=== PATIENT | male | born 1960 | race Caucasian/White ===

== ENCOUNTER 2016-09-09 14:00 | Observation (INO) | payer BC ==
[2016-09-09] MEDS ORDERED: Aspirin Low Dose CHEW TAB* 81 MG PO ONE (14:19)
[2016-09-09] MEDS ORDERED: Metoclopramide IV* 5 MG/ML 2 ML VIAL IV SLOW PU ONE (14:23)
[2016-09-09] MEDS ORDERED: diPHENhydraMINE IV* 50 MG/ML 1 ml VIAL (BENADRYL) SLOW PUSH ONE (14:23)
[2016-09-09 14:50] LABS: Hematocrit 47 % (42-52); Hemoglobin 15.8 g/dl (14.0-18.0); Mean Corpuscular HGB Conc 34 g/dl (31-36); Mean Corpuscular Hemoglobin 30 pg (27-31); Mean Corpuscular Volume 88 fL (80-94); Mean Platelet Volume 9 um3 (7.4-10.4); Red Blood Count 5.28 10^6/ul (4.0-5.4); Red Cell Distribution Width 13 % (10.5-15); White Blood Count 5.8 10^3/ul (3.5-10.8)
--- NOTE | 2016-09-09 15:02 | RAD ---
indication: Traumatic injury to the back of head while ice skating. Patient reports positive loss of consciousness and amnesia of the event. COMPARISON: None A CT scan of the brain and c-spine was performed without intravenous contrast enhancement. Contiguous axial sections were obtained from the lung apices through the vertex. BRAIN: The ventricles, cisterns and sulci are within normal limits. No significant focal abnormality or mass effect is seen. The glez-white differentiation is adequately maintained. There is no evidence for intracranial hemorrhage. No significant bony abnormality is present. The mastoid air cells are appropriately aerated. The visualized paranasal sinuses are clear. C-SPINE: On the sagittal view images the vertebral bodies and bilateral facet joints are correctly aligned. The dens is intact and the atlantoaxial interval is not widened. There is no visible fracture or traumatic dislocation of the cervical spine. Degenerative changes include loss of intervertebral disc height and marginal osteophyte formation most severely affecting C4-C7. On the coronal plane images the same levels exhibit sclerotic uncovertebral hypertrophy. There is no hyperdense material in the cervical canal to indicate hemorrhage. The visualized musculature and soft tissues are normal. There is no gross lymphadenopathy visualized. The visualized portion of the lung apices are clear. IMPRESSION: 1. No calvarial fracture or acute intracranial hemorrhage. 2. Degenerative changes of the cervical spine as described above without acute fracture or traumatic dislocation.
[2016-09-09] MEDS ORDERED: Aspirin TAB* 325 MG PO ONE (15:04)
[2016-09-09 15:08] LABS: Albumin 4.2 g/dL (3.2-5.2); BUN/Creatinine Ratio 14.3 (8-20); Calcium 9.2 mg/dL (8.6-10.3); Globulin 2.6 g/dL (2-4); Potassium 4.2 mmol/L (3.5-5.0); Total Bilirubin 0.6 mg/dL (0.2-1.0); Total Protein 6.8 g/dL (6.4-8.9)
[2016-09-09 15:10] LABS: Troponin I 0.01 ng/mL (<0.04)
--- NOTE | 2016-09-09 16:45 | RAD ---
INDICATION: Chest pain COMPARISON: None. TECHNIQUE: Single AP portable view of the chest was obtained. FINDINGS: Image quality is compromised due to the relative inferiority of a portable chest x-ray. The heart and mediastinum exhibit normal size and contour. The lungs are grossly clear. There is no evidence of a large pleural effusion. Visualized bones are normal for the patient's age. IMPRESSION: No radiographic evidence for acute cardiopulmonary abnormality on this portable chest x-ray.
[2016-09-09] MEDS ORDERED: Ondansetron INJ* 2 MG/ML VIAL IV PRN (17:16)
[2016-09-09] MEDS ORDERED: Atorvastatin* 40 MG TAB PO SCH (21:00)
[2016-09-09] MEDS: Acetaminophen TAB* 325 MG PO PRN (22:59)
--- NOTE | 2016-09-10 02:29 | HP ---
HISTORY AND PHYSICAL: DATE OF ADMISSION: 09/09/16 PRIMARY CARE PROVIDER: Dr. Gibbs in [place], [place]. Phone number is [phone]. ATTENDING PHYSICIAN WHILE IN THE HOSPITAL: Dr. Francis Rudd *(report dictated by Oleg Penny NP). CHIEF COMPLAINT: 1. Fall. 2. Chest pressure. HISTORY OF PRESENT ILLNESS: Mr. Martinez is a 55-year-old male patient who has a history of coronary artery disease and hyperlipidemia. The patient states that he was ice skating today, which he has done several times and he cannot really recall because last thing he remembers he slipped on the ice and he fell and hit his head. He is having difficulty recalling the event. He says he did not pass out, but he does state that he was having some chest pressure prior to the event and he did say that he had some chest pressure afterwards that has now subsequently receded. He says that he has noticed over the last few weeks when he is exercising, he does get some chest pressure, sometimes mostly in his left arm though. He says he usually works through it and it goes away. He denies any associated shortness of breath or diaphoresis and it does not radiate into the jaw and it does typically go away when he continues the exertion. He denies any recent URI symptoms. He denies having any recent fevers, chills, or cough. He denies having any abdominal pain or any nausea or vomiting. He says that he is not having any chest pressure now, but because of the fact that he did fall today and then afterwards, he felt what he says in his own words dazed. He does remember getting up and skating to the bench and then after that being brought in to the hospital. He recalls the events leading up to the fall. He was evaluated in the ER. There was concern for this chest pressure he has been having and the hospitalist service was asked to evaluate for admission. PAST MEDICAL HISTORY: Significant for: 1. CAD. 2. Hyperlipidemia. PAST SURGICAL HISTORY: 1. He has had a cardiac cath. 2. He has had knee arthroscopy. 3. Appendectomy. 4. Diskectomy. HOME MEDICATIONS: Include: 1. Plavix 75 mg daily. 2. Lipitor 40 mg daily. 3. Aspirin 81 mg daily. ALLERGIES TO MEDICATIONS: Include PENICILLIN. FAMILY HISTORY: His father had coronary artery disease. SOCIAL HISTORY: He does not smoke. He does not drink. Surrogate decision maker is his . REVIEW OF SYSTEMS: There is no documented fever. He denied having any significant weight change. There was no double vision. There is no ear discharge. He denies having any rhinorrhea. There is no sore throat. No thyroid enlargement. There is chest pressure per my HPI. There is no abdominal pain. There is no nausea. No vomiting. There is no dysuria. No frequency. No loss of consciousness that he is aware of. No seizure activity. No pruritus. No skin ulcerations. Review of 14 systems completed, all others negative. PHYSICAL EXAMINATION GENERAL: At this time, Mr. Martinez is a 55-year-old male patient. He does not appear to be in any acute distress. The patient is awake, he is alert. He appears well nourished, well developed. VITAL SIGNS: Blood pressure 148/82 with a pulse of 52, respirations 16, O2 sat 98%, and temperature 97.8. HEENT: Head: Atraumatic and normocephalic. Eyes: EOMs are intact. Sclerae anicteric and not pale. Throat: Oral mucosa appears to be moist. No oropharyngeal erythema. NECK: Supple. LUNGS: Clear to auscultation bilaterally. No wheezes, rales, or rhonchi. HEART: Sounds S1, S2. Regular rate and rhythm. No murmurs, rubs, or gallops. ABDOMEN: Soft, flat, and nontender. Bowel sounds present. EXTREMITIES: Pulses 2+ throughout. Able to move all 4 extremities with 5/5 strength. NEUROLOGIC: The patient is awake, he is alert, he is oriented x3. Tongue midline. Stockroom Worker were equal. No gross focal deficits. SKIN: Grossly intact. LABORATORY DATA AND DIAGNOSTIC STUDIES: Revealed a WBC of 5.8, RBC of 5.28, hemoglobin 15.9, hematocrit of 47, platelet count of 152. Sodium 137, potassium 4.2, chloride 104, bicarb 29, BUN 17, creatinine 1.19, glucose 105, lactic 1.3, calcium 9.2. Total bili 0.6, AST 23, ALT 25, alk phos 47. Troponin 0.01. Albumin 4.2. He had a cervical spine CT obtained today, which reveals no calvarial fracture or acute intracranial hemorrhage. Degenerative changes of the cervical spine as described above without acute fracture or traumatic dislocation. He had a brain CT, which showed no acute fracture or no intracranial hemorrhage. He had a chest x-ray obtained today as well, which revealed no acute disease. EKG today shows a sinus rhythm, rate of 62. He had a PAC, but no ST elevations or T-wave inversions were noted. No previous EKG for comparison. No old medical records were available. Old medical records were attempted to be reviewed. ASSESSMENT AND PLAN: Mr. Martinez is a 55-year-old male patient coming into the ER today with complaints of chest discomfort, in addition to this fall on the ice and he had been complaining of chest pressure with exertion off and on last couple weeks. He will be admitted under observation status for: 1. Chest pain: Again, with his history of coronary artery disease, this is concerning that this could be related to acute coronary syndrome, his pain that he has been having, particularly the fact that he has it with exertion. My plan at this point is to go ahead and get a stress test. We will cycle his troponins, get an EKG, lipid panel, A1c in the morning, and he is already on Plavix, aspirin, and statin. We will continue. I am not going to put him on a beta-farrukh currently. His resting heart rate is right around 60 to 59 and should his troponins go up or EKG change, we will get Cardiology consult and place him on heparin subcu and we will continue to monitor. 2. Coronary artery disease: Again, Plavix, aspirin, and statin at this point. Not on a beta-farrukh because his resting heart rate is again right around 60. 3. Hyperlipidemia: Continue with statin therapy. Check lipid panel in the morning. 4. Concussion: At this point, we will continue with supportive care. CT of the brain was negative. I will continue to follow. I suspect the fall was probably mechanical, slipping on the ice when he was ice skating. He did not appear to syncopize. We will get a stress test. I will place him on telemetry and continue to monitor. 5. DVT prophylaxis: He will be placed on SCDs. 6. Code status: Full code. 7. Fluids, electrolytes, and nutrition: He can have a heart healthy diet and n.p.o. after midnight. TIME SPENT: Time spent on the admission 60 minutes, greater than half the time was spent [id number] with the patient obtaining my history and physical, other half the time spent going over the plan of care with the patient and implementing the plan of care. I did discuss the plan of care with my attending , Dr. Rudd; he is in agreement. OLEG PENNY NP CC: Dr. Gibbs [place], [place]* [id number]/CPS #: [id number] MTDD
[2016-09-10 06:55] LABS: BUN/Creatinine Ratio 12.9 (8-20); Calcium 8.7 mg/dL (8.6-10.3); EGFR African American 77.3 (>60); EGFR Non-African American 60.1 (>60); HDL Cholesterol 49.4 mg/dL
[2016-09-10 06:57] LABS: Potassium 4.2 mmol/L (3.5-5.0)
[2016-09-10 07:22] LABS: Hematocrit 45 % (42-52); Hemoglobin 15.2 g/dl (14.0-18.0); Mean Corpuscular HGB Conc 34 g/dl (31-36); Mean Corpuscular Hemoglobin 30 pg (27-31); Mean Corpuscular Volume 89 fL (80-94); Mean Platelet Volume 8 um3 (7.4-10.4); Red Blood Count 5.04 10^6/ul (4.0-5.4); Red Cell Distribution Width 12 % (10.5-15); White Blood Count 5.9 10^3/ul (3.5-10.8)
[2016-09-10] MEDS: Acetaminophen TAB* 325 MG PO PRN (07:56)
[2016-09-10] MEDS ORDERED: Regadenoson* 0.4 MG/5 ML SYRINGE ONE (08:43)
[2016-09-10] MEDS ORDERED: Aminophylline IV* 25 MG/ML 10 ML VIAL ONE (08:44)
[2016-09-10] MEDS ORDERED: Aspirin Low Dose CHEW TAB* 81 MG PO SCH (09:00)
[2016-09-10] MEDS ORDERED: Clopidogrel TAB* 75 MG PO SCH (09:00)
--- NOTE | 2016-09-10 10:51 | RAD ---
Edited for charges. INDICATION: Chest pain COMPARISON: None TECHNIQUE: A single day SPECT protocol was utilized. Rest images were acquired following the intravenous injection of 10.6 millicuries of technetium 99m tetrofosmin. Exercise stress images were acquired following the intravenous administration of 27.0 millicuries of technetium 99m tetrofosmin. The patient was exercised to a peak heart rate of 147 which is 90% of age predicted maximum. FINDINGS: There are no defects of the stress-induced or fixed nature. The cardiac chamber size is normal. There are no wall motion abnormalities. The ejection fraction is calculated at 65 percent during stress. IMPRESSION: NO DEFECTS OR STRESS-INDUCED OR FIXED NATURE. ASSESSMENT: LOW-RISK Based on imaging criteria from ACC/AHA 2002 Guideline Update for the Management of Patients With Chronic Stable Angina Table 23. Noninvasive Risk Stratification. MTDD
--- NOTE | 2016-09-10 11:28 | PN ---
Hospitalist Progress Note . HOSPITALIST DISCHARGE NOTE: See dc instructions and summary by me. Patient stable for dc dc instructions reviewed with the patient at the bedside. DC patient home today.
[2016-09-10 12:14] VITALS: BP 132/73
--- NOTE | 2016-09-11 07:45 | DS ---
DISCHARGE SUMMARY: DATE OF ADMISSION: 09/09/16 DATE OF DISCHARGE: 09/10/16 STATUS: Observation. PRIMARY CARE PROVIDER: Dr. Gibbs in [place], [place]. Phone number [phone]. PRINCIPAL DISCHARGE DIAGNOSES: Chest pain while ice skating and a fall doing the same on 09/09/16; status post nuclear stress test that is low risk by ACC/ AHA criteria. Head injury was evaluated with head CT with no intracranial pathology observed, but concern because of patient's aspirin and Plavix regimen. SECONDARY DIAGNOSES: 1. Known CAD with history of coronary stents following PCI. 2. Hyperlipidemia. DISCHARGE MEDICATIONS: 1. Plavix 75 mg daily. 2. Lipitor 40 mg by mouth daily. 3. Aspirin 81 mg by mouth daily. No changes were intended. HISTORY OF PRESENT ILLNESS/HOSPITAL COURSE: Please see the H and P by nurse practitioner, Chris Penny under the supervision of Dr. Francis Rudd on . In brief, Mr. Martinez is a 55-year-old gentleman with known CAD, hyperlipidemia, who was ice skating when he slipped on the ice, fell and hit his head. The patient had difficulty recalling the event. He was diagnosed with post-concussive syndrome. The head CT in the emergency room did not show any intracranial abnormality, and specifically no bleeding. There is no focal neurologic symptomatology or evidence thereof on neuro exam. The patient also espoused chest pain before and after the ice skating and fall. For this reason , the patient was placed briefly on observation status with serial troponins drawn (negative), and the patient proceeded with a stress test (one-day protocol , nuclear exercise) and this was interpreted as low risk by ACC/AHA criteria. The patient is being discharged in stable condition. Apparently, the patient has been taking his aspirin and Plavix for the past 8 years. I asked him to discuss this with his physician regarding the need for what seems to be indefinite dual-antiplatelet therapy. Though there may be an indication, even with coronary MARISSA, Plavix can usually be stopped at some point. The patient was counseled to go to the nearest emergency room during his travel back to [place] today if he should experience any concerning symptomatology including lightheadedness, loss of consciousness, any focal neurologic symptoms , recurrent chest pain, nausea, vomiting or any other worrisome symptoms that might present. The patient states he would comply with the instruction. He was discharged in stable condition. [id number]/[facility] #: [id number] MTDJess
--- NOTE | 2016-09-11 14:10 | ED ---
Connie Mariscal Adam, scribed for Harinder Kim MD on 09/09/16 at 1419 . Head Injury - HPI Summary HPI Summary: A 55 y/o male presents to the ED s/p fall while ice skating and hitting his head. Currently, he is c/o a headache (3/10), lightheadedness, dizziness, and chest pain (2/10). Per son, he witnessed the fall and states the patient lost consciousness for 2 seconds and was then confused with repetitive questioning after the incident. He ambulated outside on his own. Patient denies blurry vision, back pain, neck pain, or SOB. PMHx is positive for CAD (3 stents placed 8 years ago) and FHx is positive for cardiac disease. - History Of Current Complaint Chief Complaint: EDHeadInjury Stated Complaint: FALL Time Seen by Provider: 09/09/16 14:15 Hx Obtained From: Patient, Family/Marketing Operations Coordinator - Son Mechanism Of Injury: Fall From A Standing Position Onset/Duration: Started Hours Ago Onset of Pain: Immediate Severity Currently: Mild Severity Initially: Mild Pain Intensity: 3 Pain Scale Used: 0-10 Numeric Location of Head Injury: Diffuse Character: Throbbing Associated Signs And Symptoms: LOC (Time In Secs./Mins/Hrs) - 2 seconds, Confusion, Memory Loss - Short-term, Nausea, Headache, Other: - Lightheaded, dizzy Anticoagulant Therapy: Blood Thinners - Plavix - Allergies/Home Medications Allergies/Adverse Reactions: Allergies Allergy/AdvReac Type Severity Reaction Status Date / Time Penicillins [PCN] Allergy Rash Verified 09/09/16 15:31 PMH/Surg Hx/FS Hx/Imm Hx Cardiovascular History: Reports: Hx Coronary Artery Disease - Surgical History Surgery Procedure, Year, and Place: 3 stents placed in 2007 Infectious Disease History: Denies: Traveled Outside the [place] in Last 30 Days - Family History Known Family History: Positive: Cardiac Disease - Father - Social History Occupation: Employed Full-time Lives: With Family Alcohol Use: Occasionally Hx Tobacco Use: No Review of Systems Constitutional: Negative Negative: Fever, Chills Eyes: Negative Negative: Blurred Vision, Erythema ENT: Negative Negative: Sore Throat Positive: Chest Pain - Mild (2/10) Respiratory: Negative Negative: Shortness Of Breath, Cough Positive: Nausea. Negative: Abdominal Pain, Vomiting Genitourinary: Negative Negative: dysuria, hematuria Musculoskeletal: Negative Negative: Myalgia, Edema Skin: Negative Negative: Rash Neurological: Other - Initial confusion, repetitive questioning, lightheaded, dizziness Positive: Headache - Diffuse Psychological: Normal All Other Systems Reviewed And Are Negative: Yes Physical Exam - Summary Physical Exam Summary: Constitutional: Well-developed, Well-nourished, Alert. (-) Distressed Skin: Warm, Dry HENT: Eyes: Conjunctiva normal Neck: Musculoskeletal ROM normal neck. (-) JVD, (-) Stridor, (-) Tracheal deviation Cardio: Rhythm regular, rate normal, Heart sounds normal; Intact distal pulses ; The pedal pulses are 2+ and symmetric. Radial pulses are 2+ and symmetric. (- ) Murmur Pulmonary/Chest wall: Effort normal. (-) Respiratory distress, (-) Wheezes, (-) Rales Abd: Soft. (-) Tenderness, (-) Distension, (-) Guarding, (-) Rebound Musculoskeletal: (-) Edema Lymph: (-) Cervical adenopathy Neuro: Alert, Oriented x3, Strength normal, Cranial nerves II-XII are grossly intact. (-) Dysmetria, (-) Nystagmus, (-) Ataxia by finger to nose testing, (-) Sensory deficit. Psych: Mood and affect Normal Diagnostics - Laboratory Result Diagrams: 09/09/16 14:41 09/09/16 14:41 Lab Statement: Any lab studies that have been ordered have been reviewed, and results considered in the medical decision making process. - CT Brain CT Interpretation: No Acute Changes CT Interpretation Completed By: Radiologist Cervical spine CT Interpretation: No Acute Changes CT Interpretation Completed By: Radiologist - EKG 14:31 Cardiac Rate: NL - 62 EKG Rhythm: Sinus Rhythm ST Segment: Normal Re-Evaluation - Re-Evaluation First Eval Re-Evaluation Time: 15:11 Change: Improved Comment: Chest pain has spontaneously resolved Head Injury Course/Dx - Diagnoses Provider Diagnoses: Chest pain, unspecified, Concussion - Physician Notifications Discussed Care Of Patient With: Dr. Rudd to be made aware of patient Discharge - Discharge Plan Condition: Stable Disposition: ADMITTED TO [facility] documentation as recorded by the Connie washington Adam accurately reflects the service I personally performed and the decisions made by , Harinder Kim MD.
== END 2016-09-10 12:30 | disposition home or self-care (01) ==
LOC: ED 14:00 → MEDTELE 17:14
PROVIDERS: ADMIT Internal Medicine; ATTEND Internal Medicine
DX: R07.9 Chest pain, unspecified (principal); I25.10 Atherosclerotic heart disease of native coronary artery without angina pectoris; Z95.5 Presence of coronary angioplasty implant and graft; E78.5 Hyperlipidemia, unspecified; Z79.82 Long term (current) use of aspirin; Z79.899 Other long term (current) drug therapy; Z88.0 Allergy status to penicillin; S06.0X1A Concussion with loss of consciousness of 30 minutes or less, initial encounter; W00.0XXA Fall on same level due to ice and snow, initial encounter; Y92.9 Unspecified place or not applicable; R51 Headache; Z79.02 Long term (current) use of antithrombotics/antiplatelets
CPT/HCPCS: 36415; 70450; 71010; 72125; 78452; 80048; 80053; 80061; 83036; 83605; 84484; 85025; 93005; 93017; 96374; 96375; 99283; A9270-GY; A9502; G0378; J0280; J1200; J2765; J2785